=== PATIENT | male | born 2005 | race Caucasian/White ===

== ENCOUNTER 2024-06-11 13:35 | Outpatient (REF) | payer MEDICAID, SELFPAY ==
--- OUTSIDE RECORDS SUMMARY | 2024-06-11 15:54 | XMS_ITS | Clinical Summary ---
Author Organization [facility] Address [address] [place] [phone] Phone Care Team Providers Care Parts Counter Specialist Name Role Phone Unavailable Primary Care Provider Unavailabl e Immunizations Immunization Administration Dates Next Due DTaP / Hep B / IPV 04/20/2005,2004, 005 Hep B, ped/adol 2004 Hib (HbOC) 2004,2004 Hib (PRP-T) 04/20/2005 MMR 08/10/2005 Pneumococcal Conjugate 04/20/2005,2004, Varicella 08/10/2005 Family History Relation Name Status Comments Brother 1 Alive Brother: Alive and well, Alive and well, Alive and well Brother 2 Alive Brother: Alive and well, Alive and well, Alive and well Brother 3 Alive Brother: Alive and well, Alive and well, Alive and well Father Alive Father: Alive a nd well Mother Alive Mother: Alive a nd well Social History Tobacco Use Types Packs/Day Years Used Date Smoking Tobacco: Never Assessed Sex and Gender Information Value Date Recorded Sex Assigned at Not on file Legal Sex Male 4:12 PM EDT Gender Identity Not on file Sexual Orientation Not on file Plan of Treatment Health Maintenance Due Date Last Done Comments IPV Vaccines (4 of 4 - 4-dose series) 2008 04/20/2005, 2004, 2004 Varicella Vaccines (2 of 2 - 2-dose childhood series) 2008 08/10/2005 HPV Vaccines (1 - Male 3-dose series) 06/04/2019 Consider Men B Vaccine (1 of 2 - Bexsero 2-dose series) 2020 Men B Vaccine (1 of 2 - Standard) 2020 DTaP,Tdap,and Td Vaccines (4 - Tdap) 2022 04/20/2005, 2004, 2004 Influenza Vaccines (#1) 2023 COVID-19 Vaccine (2023- season) 2023 HIB Vaccines Aged Out 04/20/2005, 11/26, 2004 No longer eligible based on patient's age to complete this topic Hepatitis B Vaccines Completed 04/20/2005, 2004, 2004, Additional history exists Pneumococcal Vaccine Aged Out 04/20/2005, 2004, 2004 No longer eligible based on patient's age to complete this topic MMR Vaccines Completed 08/10/2005 Hepatitis A Vaccines Aged Out No long er eligible based on patient's age to complete this topic Meningococcal Vaccine Aged Out No lucas elmira eligible based on patient's age to complete this topic
--- OUTSIDE RECORDS SUMMARY | 2024-06-11 15:54 | XMS_ITS | Encounter Summary ---
Author Organization [facility] Address [address] [place] [phone] Phone Care Team Providers Care Resident Advisor Name Role Phone Unavailable Primary Care Provider Unavailabl e Encounter Details Date Type Department Care Team (Late st Contact Info) Description 11/11/2016 Conversion Encounter [facility] - [address] [id number] Social History Tobacco Use Types Packs/Day Years Used Date Smoking Tobacco: Never Assessed Sex and Gender Information Value Date Recorded Sex Assigned at Not on file Legal Sex Male 4:12 PM EDT Gender Identity Not on file Sexual Orientation Not on file documented as of this encounter Plan of Treatment Not on file documented as of this encounter Visit Diagnoses Not on filedocumented in this encounter
[2024-06-12 02:46] LABS: CT PCR NOT DETECTED (Not Detect.); NG PCR NOT DETECTED (Not Detect.)
[2024-06-12 20:23] LABS: Trichomonas vaginalis RNA NOT DETECTED (NOT DETECTED)
== END 2024-06-11 13:36 | disposition home or self-care (01) ==
LOC: HO.HHCL 13:35
PROVIDERS: Visit Provider Internal Medicine
DX: S31.21XA Laceration without foreign body of penis, initial encounter (principal); N48.89 Other specified disorders of penis
CPT/HCPCS: 87491; 87591; 87661

== ENCOUNTER 2024-07-14 10:18 | Outpatient (REF) | payer MEDICAID, SELFPAY ==
--- NOTE | ~2024-07-14 | XR_ITS ---
EXAMINATION: XR CHEST CLINICAL INFORMATION: 2 months of productive cough COMPARISON: None available. TECHNIQUE: 2 views of the chest were obtained. FINDINGS: No significant abnormality is noted involving the heart, lungs, mediastinum, bony thorax or soft tissues. XR/XR chest 2V IMPRESSION: Unremarkable chest examination. Electronically signed by: Saravanan Bermeo MD 07/17/2024 09:09 AM EDT
== END 2024-07-14 10:19 | disposition home or self-care (01) ==
LOC: HO.XRAY 10:18
PROVIDERS: PCP Family Medicine; Visit Provider Internal Medicine Geriatric Medicine
DX: R05.9 Cough, unspecified (principal); J06.9 Acute upper respiratory infection, unspecified; R07.89 Other chest pain
CPT/HCPCS: 71046

== ENCOUNTER → 2024-07-14 10:32 | Outpatient (BNV) | payer MEDICAID, SELFPAY | PROVIDERS: PCP Family Medicine; Visit Provider Radiology Diagnostic Radiology | DX: R05.9 Cough, unspecified (principal) | CPT/HCPCS: 71046 ==

== ENCOUNTER 2024-09-12 11:35 | Outpatient (REF) | payer MEDICAID, SELFPAY ==
--- OUTSIDE RECORDS SUMMARY | 2024-09-12 13:36 | XMS_ITS | Encounter Summary ---
Author Organization [facility] Address [address] [place] [phone] Phone Care Team Providers Care Supervisor Painting Shipyard Name Role Phone Unavailable Primary Care Provider Unavailabl e Encounter Details Date Type Department Care Team (Late st Contact Info) Description 11/11/2016 Conversion Encounter [facility] - [address] [phone] Social History Tobacco Use Types Packs/Day Years [...]
[2024-09-12 14:09] LABS: Alanine Aminotransferase 21 U/L (0-40); Alkaline Phosphatase 55 U/L (39-117); Aspartate Amino Transferase 22 U/L (5-37); Bilirubin Direct 0.2 mg/dL (0.0-0.5); Bilirubin Total 0.5 mg/dL (0.0-1.0); Cholesterol 169 mg/dL (<200); HDL Cholesterol 57 mg/dL (>40); LDL Cholesterol Calculated 99 mg/dL (<100); Total Protein 7.3 g/dL (6.5-8.0); Triglycerides 68 mg/dL (<150)
[2024-09-12 15:17] LABS: CT PCR NOT DETECTED (Not Detect.); NG PCR NOT DETECTED (Not Detect.)
[2024-09-13 08:26] LABS: Syphilis Screen Nonreactive (Nonreactive)
[2024-09-13 08:35] LABS: HIV AB/AG Nonreactive (Nonreactive); HIV Num 1 0.08 S/CO (0.00-0.99); ~HepC Num1 0.12 S/CO (0.00-0.79); ~Hepatitis C Antibody Nonreactive (Nonreactive)
== END 2024-09-12 11:36 | disposition home or self-care (01) ==
LOC: HO.HHCL 11:35
PROVIDERS: PCP Family Medicine; Visit Provider Family Medicine
DX: Z11.3 Encounter for screening for infections with a predominantly sexual mode of transmission (principal); F10.90 Alcohol use, unspecified, uncomplicated
CPT/HCPCS: 80061; 80076; 86780; 86803; 87389; 87491; 87591